=== PATIENT | male | born 1955 | race Caucasian/White ===

== ENCOUNTER 2016-11-22 14:12 | Emergency (ER) | payer OTHER ==
[~2016-11-22] VITALS: Ht 172.7 cm; Wt 49.0 kg
[~2016-11-22 14:12] MED LIST: BACT800T5 PO
[2016-11-22 14:18] VITALS: BP 98/68; PULSE 89; RESP 15; TEMP 98.7; O2SAT 96
--- NOTE | 2016-11-22 14:35 | PD ---
HPI Chief Complaint: Skin Problem Time Seen by Provider: 14:35 Travel History International Travel<30 days: No Contact w/Intl Traveler<30days: No Traveled to known affect area: No History of Present Illness HPI 61-year-old male presents to the emergency room for evaluation of an abscess to his right lower abdomen. He first noticed it 6 days ago and states it has gotten larger every day. Believes the spider could've potentially bitten him as it is under his belt line but he did not actually see a spider. Patient has applied drawing salve and tried to poke it with a needle without relief in symptoms. States it became especially painful today as with the pressure of his belt and pants. He denies fever, chills, nausea, and vomiting. Last tetanus was less than 5 years ago. PFSH Past Medical History Hx Anticoagulant Therapy: No Arthritis: Yes Bipolar Disorder: Yes Cancer: No Cardiovascular Problems: No Chemotherapy: No Cerebrovascular Accident: No Diabetes: No Endocrine: No Gastrointestinal Disorders: No GERD: Yes (PT DENIES) Genitourinary: No Hepatitis: No Hiatal Hernia: No Hypertension: No Immune Disorder: No Musculoskeletal: Yes Neurologic: Yes (NUMBNESS IN LEGS) Psychiatric: No Reproductive: No Respiratory: No Immunizations Current: Yes Thyroid Disease: No Tetanus Vaccination: < 5 Years Influenza Vaccination: No Past Surgical History Joint Replacement: No Neurologic Surgery: Yes (CERVICAL SPINE C4-5 ) Oral Surgery: Yes (TEETH EXTRACTIONS) Pacemaker: No Other Surgery: Yes Social History Alcohol Use: Yes (COUPLE TIMES A WEEK) Tobacco Use: Yes (1 1/2 PKS PER DAY) Substance Use: No Allergies-Medications (Allergen,Severity, Reaction): Coded Allergies: No Known Allergies (Verified , 11/22/16) Reported Meds & Prescriptions Reported Meds & Active Scripts Active Bactrim DS (Sulfamethoxazole-Trimethoprim) 800-160 Mg Tab 1 Tab PO BID Review of Systems Except as stated in HPI: all other systems reviewed are Neg Physical Exam Narrative GENERAL: Well-nourished, well-developed male in no acute distress. Afebrile. Ambulatory. SKIN: Focused skin assessment warm/dry. There is an indurated area in the right lower abdomen which measures about 4 cm in diameter. It is fluctuant but there is no pointing or drainage. There is a zone of inflammation around it but no lymphangitis. HEAD: Normocephalic. EYES: No scleral icterus. No injection or drainage. NECK: Supple, trachea midline. No JVD or lymphadenopathy. CARDIOVASCULAR: Regular rate and rhythm without murmurs, gallops, or rubs. RESPIRATORY: Breath sounds equal bilaterally. No accessory muscle use. PSYCHIATRIC: No delusional thought processes. No hallucinations. Data Data Last Documented VS Vital Signs Date Time Temp Pulse Resp B/P Pulse Ox O2 Delivery O2 Flow Rate FiO2 11/22/16 14:18 98.7 89 15 98/68 96 Orders Lidocaine 1% Inj (50 Ml) (Xylocaine 1% I (11/22/16 14:45) Wound Culture And Gram Stain (11/22/16 14:55) [facility] Medical Decision Making Medical Screen Exam Complete: Yes Emergency Medical Condition: Yes Medical Record Reviewed: Yes Differential Diagnosis Abscess, folliculitis, cellulitis Narrative Course 61-year-old male presents to the emergency room for evaluation of abscess to his right lower abdomen that started 6 days ago. Patient is afebrile and well- appearing in the emergency room. Vital signs stable. Physical exam reveals a 4 cm, extremely fluctuant abscess. No lymphangitis. Abscess was drained, see procedure note for details. Patient discharged with Bactrim and told to follow- up with a primary care physician or return for worsening symptoms. He understands and agrees to this plan. Procedures Procedure Narrative INCISION AND DRAINAGE OF ABSCESS: The area was prepped and was sterilely draped. A subcutaneous wheal of 1% lidocaine with a total number 2 mL was used to anesthetize the area properly. A number 11 scalpel was used to make a 1 cm incision across the area of the abscess. The abscess was drained, complex loculations were broken down, and irrigated with normal saline. Cultures were obtained. Sterile dressing applied. Diagnosis Primary Impression: Abscess Referrals: Primary Care Physician Patient Instructions: Abscess (ED), General Instructions Additional Instructions: Rest and drink plenty of fluids. Take Bactrim as directed, until gone. Follow up with a primary care physician. Return to emergency room for worsening symptoms, as discussed. Med/Other Pt SpecificInfo: Prescription(s) given Scripts Sulfamethoxazole-Trimethoprim (Bactrim DS)800-160 Mg Tab1 Tab PO BID #20 TAB Ref 0 Prov:French Dunne MD 11/22/16 Disposition: 01 DISCHARGE HOME Condition: Stable Ebonie Ventura Nov 22, 2016 14:35 Ebonie Ventura Nov 22, 2016 14:35
[2016-11-22] MEDS ORDERED: BACT800T5 PO (14:39)
[2016-11-22] MEDS ORDERED: LIDOCAINE HCL 1% 50 ML VIAL INFIL ONE (14:45)
== END 2016-11-22 15:07 | disposition home or self-care (01) ==
LOC: PHEFT 14:12
DX: L02.211 Cutaneous abscess of abdominal wall (principal); B95.61 Methicillin susceptible Staphylococcus aureus infection as the cause of diseases classified elsewhere; F17.200 Nicotine dependence, unspecified, uncomplicated; Z87.39 Personal history of other diseases of the musculoskeletal system and connective tissue; Z86.59 Personal history of other mental and behavioral disorders; Z86.69 Personal history of other diseases of the nervous system and sense organs
CPT/HCPCS: 10060; 86403; 87070; 87186

== ENCOUNTER 2017-03-06 09:06 | Emergency (ER) | payer OTHER ==
[~2017-03-06] VITALS: Ht 172.7 cm; Wt 48.0 kg
[2017-03-06 09:08] VITALS: BP 122/72; PULSE 85; RESP 17; TEMP 98; O2SAT 96
--- NOTE | 2017-03-06 09:39 | PD ---
HPI Chief Complaint: Musculoskeletal Complaint Time Seen by Provider: 09:22 Travel History International Travel<30 days: No Contact w/Intl Traveler<30days: No Traveled to known affect area: No History of Present Illness HPI 61yo M with PMH of bipolar disorder and arthritis presents to the ED with c/o left buttock pain that radiates down left leg for 3 days. States pain is intermittent and shoots down from left hip/left buttocks all the way down his left leg. He went to chiropractor yesterday and the pain went away but return today. Denies any fever, trauma, weakness, numbness, chest pain, sob, n/v, abdominal pain, back pain. Said he had problem with his sciatic nerve before. Took either tylenol and motrin for pain. PFSH Past Medical History Hx Anticoagulant Therapy: No Arthritis: Yes Bipolar Disorder: Yes Cancer: No Cardiovascular Problems: No Chemotherapy: No Cerebrovascular Accident: No Diabetes: No Endocrine: No Gastrointestinal Disorders: No GERD: Yes (PT DENIES) Genitourinary: No Hepatitis: No Hiatal Hernia: No Hypertension: No Immune Disorder: No Medical other: No Musculoskeletal: Yes Neurologic: Yes (NUMBNESS IN LEGS) Psychiatric: No Reproductive: No Respiratory: Yes (COPD) Immunizations Current: Yes Thyroid Disease: No Past Surgical History Joint Replacement: No Neurologic Surgery: Yes (CERVICAL SPINE C4-5 ) Oral Surgery: Yes (TEETH EXTRACTIONS) Pacemaker: No Other Surgery: Yes Social History Alcohol Use: Yes (COUPLE TIMES A WEEK) Tobacco Use: Yes (1 1/2 PKS PER DAY) Substance Use: No Allergies-Medications (Allergen,Severity, Reaction): Coded Allergies: No Known Allergies (Verified , 03/06/17) Reported Meds & Prescriptions Reported Meds & Active Scripts Active Tylenol (Acetaminophen) 325 Mg Tab 650 Mg PO Q6H PRN Review of Systems Except as stated in HPI: all other systems reviewed are Neg Physical Exam Narrative GENERAL: 61yo M not in distress. SKIN: Focused skin assessment warm/dry. HEAD: Atraumatic. Normocephalic. CARDIOVASCULAR: Regular rate and rhythm. No murmur appreciated. RESPIRATORY: No accessory muscle use. Clear to auscultation. Breath sounds equal bilaterally. GASTROINTESTINAL: Abdomen soft, non-tender, nondistended. No rebound tenderness or guarding. BACK: No midline ttp thoracic or lumbar spine. MUSCULOSKELETAL: +TTP left gluteus lucas. No erythema, edema, abscess, ecchymoses. FROM in left hip, left knee. Sensation intact. No saddle paresthesia. Distal pulses intact. NEUROLOGICAL: Awake and alert. No obvious cranial nerve deficits. Motor grossly within normal limits. Normal speech. PSYCHIATRIC: Appropriate mood and affect; insight and judgment normal. Data Data Last Documented VS Vital Signs Date Time Temp Pulse Resp B/P (MAP) Pulse Ox O2 Delivery O2 Flow Rate FiO2 03/06/17 09:08 98.0 85 17 122/72 (89) 96 Orders Orders Ketorolac Inj (Toradol Inj) (03/06/17 09:45) Hip, Uni(Ap&Lat) W Ap Pelvis (03/06/17 ) Diazepam (Valium) (03/06/17 11:15) MDM Medical Decision Making Medical Screen Exam Complete: Yes Emergency Medical Condition: Yes Differential Diagnosis Sciatica vs. pyriformis syndrome vs. musculoskeletal pain Narrative Course 61yo M with left buttocks pain radiating down left leg. Pt has no red flags, full range of motion in left hip. He is insisting on imaging even though I informed him that I do not think that his left hip is dislocated or broken. There is no trauma. Pt given toradol IM and valium 5mg PO with improvement of pain. Xray of left hip negative for fracture or malalignment. Vital signs stable. Diagnosis Primary Impression: Sciatic nerve pain Qualified Codes: M54.32 - Sciatica, left side Patient Instructions: General Instructions Departure Forms: Tests/Procedures Additional Instructions: Please follow up with your primary care physician in 2-3 days. Return to the ED if symptoms worsen. Med/Other Pt SpecificInfo: Prescription(s) given Scripts Acetaminophen (Tylenol) 325 Mg Tab 650 MG PO Q6H Y for PAIN SCALE 1 TO 4, #20 TAB 0 Refills Prov: Theresa Hinojosa 03/06/17 Disposition: 01 DISCHARGE HOME Condition: Stable HinojosaTheresa DO Mar 06, 2017 09:39
[2017-03-06] MEDS ORDERED: KETOROLAC TROMETHAMINE 60 MG/2 ML (IM) VIAL IM ONE (09:45)
--- NOTE | 2017-03-06 10:28 | RADRPT ---
EXAM DATE/TIME: 03/06/2017 09:58 [facility] COMPARISON: No previous studies available for comparison. INDICATIONS : Left hip pain. MEDICAL HISTORY : None. SURGICAL HISTORY : None. ENCOUNTER: Initial ACUITY: 3 days PAIN SCORE: 10/10 LOCATION: low back FINDINGS: Examination of the left hip was performed with AP Pelvis. The primary and secondary trabecular patte rn of the femoral neck is intact. The hip joint is of normal width without significant sclerosis or bony hypertrophy. The acetabulum is grossly intact. CONCLUSION: Negative exam with no evidence of fracture or malalignment. Micah Jones MD on March 06, 2017 at 10:26 Board Certified Radiologist. This report was verified electronically.
[2017-03-06] MEDS ORDERED: TYLE325T PO (10:36)
[2017-03-06] MEDS ORDERED: DIAZEPAM 5 MG TAB PO ONE (11:15)
== END 2017-03-06 11:24 | disposition home or self-care (01) ==
LOC: PHED 09:06
DX: M54.32 Sciatica, left side (principal); F17.200 Nicotine dependence, unspecified, uncomplicated; Z87.39 Personal history of other diseases of the musculoskeletal system and connective tissue; Z86.59 Personal history of other mental and behavioral disorders; Z87.19 Personal history of other diseases of the digestive system; Z86.69 Personal history of other diseases of the nervous system and sense organs; Z87.09 Personal history of other diseases of the respiratory system
CPT/HCPCS: 73502; 96372; 99284; J1885

== ENCOUNTER 2017-06-22 09:42 | Emergency (ER) | payer OTHER ==
[~2017-06-22] VITALS: Ht 172.7 cm; Wt 46.3 kg
[~2017-06-22 09:42] MED LIST changes: -BACT800T5 PO; +TYLE325T PO
[2017-06-22 09:50] VITALS: BP 113/72; PULSE 90; RESP 16; TEMP 97.8; O2SAT 98
[2017-06-22] MEDS ORDERED: BACT800T5 PO (10:26)
--- NOTE | 2017-06-22 10:26 | PD ---
HPI Chief Complaint: Skin Problem Time Seen by Provider: 09:58 Travel History International Travel<30 days: No Contact w/Intl Traveler<30days: No Traveled to known affect area: No History of Present Illness HPI This is a 61-year-old male here with abscess to his right lower abdomen 3 days. He has history of previous abscesses. He denies fever or chills. He reports the area has become increasingly more painful, swollen, red for the last 3 days. Pain is aggravated by palpation of the area. Slightly relieved with OTC Tylenol or ibuprofen. Symptom severity moderate. PFSH Past Medical History Hx Anticoagulant Therapy: No Arthritis: Yes Bipolar Disorder: Yes Cancer: No Cardiovascular Problems: No Chemotherapy: No COPD: Yes Cerebrovascular Accident: No Diabetes: No Endocrine: No Gastrointestinal Disorders: No GERD: Yes (PT DENIES) Genitourinary: No Hepatitis: No Hiatal Hernia: No Hypertension: No Immune Disorder: No Musculoskeletal: Yes Neurologic: Yes (NUMBNESS IN LEGS) Psychiatric: No Reproductive: No Respiratory: Yes (COPD) Immunizations Current: Yes Thyroid Disease: No Tetanus Vaccination: < 5 Years Influenza Vaccination: No Past Surgical History Joint Replacement: No Neurologic Surgery: Yes (CERVICAL SPINE C4-5 ) Oral Surgery: Yes (TEETH EXTRACTIONS) Pacemaker: No Other Surgery: Yes Social History Alcohol Use: Yes (occas. beer or wine) Tobacco Use: Yes (1 PK PER DAY) Substance Use: No Allergies-Medications (Allergen,Severity, Reaction): Coded Allergies: No Known Allergies (Verified Adverse Reaction, Unknown, 06/22/17) Reported Meds & Prescriptions Reported Meds & Active Scripts Active Bactrim DS (Sulfamethoxazole-Trimethoprim) 800-160 Mg Tab 1 Tab PO BID Tylenol (Acetaminophen) 325 Mg Tab 650 Mg PO Q6H PRN Review of Systems Except as stated in HPI: all other systems reviewed are Neg General / Constitutional: No: Fever Physical Exam Narrative GENERAL: Alert and well-appearing male. SKIN: Warm and dry. 1.5 centimeter fluctuant area to the right suprapubic region. No surrounding cellulitis. Scant amount of purulent drainage from the center. HEAD: Normocephalic. EYES: No scleral icterus. No injection or drainage. NECK: Supple, trachea midline. CARDIOVASCULAR: Regular rate and rhythm RESPIRATORY: Breath sounds equal bilaterally. No accessory muscle use. GASTROINTESTINAL: Abdomen soft, non-tender, nondistended. MUSCULOSKELETAL: No cyanosis, or edema. Data Data Last Documented VS Vital Signs Date Time Temp Pulse Resp B/P (MAP) Pulse Ox O2 Delivery O2 Flow Rate FiO2 06/22/17 09:57 16 06/22/17 09:50 97.8 90 113/72 (86) 98 Orders Orders Ed Discharge Order (06/22/17 10:26) MDM Medical Decision Making Medical Screen Exam Complete: Yes Emergency Medical Condition: Yes Differential Diagnosis Abscess, cellulitis, folliculitis Narrative Course 61 -year-old male here for incision and drainage of abscess. He is nontoxic- appearing. Incision and drainage performed. Patient tolerated procedure well. He'll be discharged home with Bactrim. Procedures Procedure Narrative INCISION AND DRAINAGE OF ABSCESS: The area was prepped and was sterilely draped. A subcutaneous wheal of 1 % Xylocaine was used to anesthetize the area properly. A number 11 scalpel was used to make a 0.5 -cm incision across the area of the abscess. The abscess was drained, complex loculations were broken down, and irrigated with normal saline. Cultures were obtained. Sterile dressing applied. Diagnosis Primary Impression: Abscess Referrals: Primary Care Physician Additional Instructions: Antibiotics as prescribed. Apply warm compresses to the area daily. Wash the area with soap and water daily. Return if he developed new or worsening symptoms. Scripts Sulfamethoxazole-Trimethoprim (Bactrim DS) 800-160 Mg Tab 1 TAB PO BID for Infection, #20 TAB 0 Refills Prov: Amanda Walls 06/22/17 Disposition: 01 DISCHARGE HOME Condition: Stable Amanda Walls Jun 22, 2017 10:26
== END 2017-06-22 10:30 | disposition home or self-care (01) ==
LOC: PHEFT 09:42
DX: L02.211 Cutaneous abscess of abdominal wall (principal); J44.9 Chronic obstructive pulmonary disease, unspecified; Z72.0 Tobacco use
CPT/HCPCS: 10060

== ENCOUNTER 2017-11-02 11:28 | Emergency (ER) | payer OTHER ==
[~2017-11-02] VITALS: Ht 172.7 cm; Wt 46.8 kg
[~2017-11-02 11:28] MED LIST changes: +BACT800T5 PO
[2017-11-02 11:31] VITALS: BP 122/61; PULSE 87; RESP 20; TEMP 98; O2SAT 95
[2017-11-02] MEDS ORDERED: CEPH-460 PO (11:54)
[2017-11-02] MEDS ORDERED: BACT800T5 PO (11:54)
--- NOTE | 2017-11-02 11:59 | PD ---
HPI Chief Complaint: Skin Problem Time Seen by Provider: 11:46 Travel History International Travel<30 days: No Contact w/Intl Traveler<30days: No Traveled to known affect area: No History of Present Illness HPI 62-year-old male presents emergency department for evaluation of a wound to the pelvic region that is been present since July or August this year. Says that he was evaluated and an incision and drainage performed but he does not believe that the entire abscess was removed. Says that he has had persistent scabbing since the drainage procedure. Says over the last couple days he has had increased irritation and yellow discharge along with increased pain so he decided to come in today for evaluation. He denies radiation of pain. He denies fevers or chills. He has no other concerns regarding this lesion. Says he is a history of abscesses previously that have healed normally. PFSH Past Medical History Hx Anticoagulant Therapy: No Arthritis: Yes Bipolar Disorder: Yes Cancer: No Cardiovascular Problems: No Chemotherapy: No COPD: Yes Cerebrovascular Accident: No Diabetes: No Diminished Hearing: No Endocrine: No Gastrointestinal Disorders: No GERD: Yes (PT DENIES) Genitourinary: No Hepatitis: No Hiatal Hernia: No Hypertension: No Immune Disorder: No Musculoskeletal: Yes Neurologic: Yes (NUMBNESS IN LEGS) Psychiatric: No Reproductive: No Respiratory: Yes (COPD) Immunizations Current: Yes Thyroid Disease: No Influenza Vaccination: No ?: Not Past Surgical History Joint Replacement: No Neurologic Surgery: Yes (CERVICAL SPINE C4-5 ) Oral Surgery: Yes (TEETH EXTRACTIONS) Pacemaker: No Other Surgery: Yes Social History Alcohol Use: Yes (occas. beer or wine) Tobacco Use: Yes (1 PK PER DAY) Substance Use: No Allergies-Medications (Allergen,Severity, Reaction): Coded Allergies: No Known Allergies (Verified Adverse Reaction, Unknown, 11/02/17) Reported Meds & Prescriptions Reported Meds & Active Scripts Active Keflex (Cephalexin) 500 Mg Cap 500 Mg PO Q8H 7 Days Bactrim DS (Sulfamethoxazole-Trimethoprim) 800-160 Mg Tab 1 Tab PO BID Review of Systems Except as stated in HPI: all other systems reviewed are Neg Physical Exam Narrative GENERAL: Well-nourished, well-developed patient, in NAD SKIN: Focused skin assessment warm/dry. No rashes or lesions. Mid pelvic-ulcerated lesions with white exudate, no malodorous discharge noted, no obvious fluctuance, unable to express fluid or discharge, mild tenderness palpation without extension of wound beyond the medial borders of the ulcer. The lymph angiopathic spread. No edema. HEAD: Normocephalic. Atraumatic. EYES: No scleral icterus. No injection or drainage. THROAT: No pharyngeal injection, exudates, or tonsillar hypertrophy. Airway is patent. NECK: Supple, trachea midline. No JVD or lymphadenopathy. No meningismus. MUSCULOSKELETAL: No cyanosis, or edema. BACK: Nontender without obvious deformity. No CVA tenderness. Data Data Last Documented VS Vital Signs Date Time Temp Pulse Resp B/P (MAP) Pulse Ox O2 Delivery O2 Flow Rate FiO2 11/02/17 11:31 98.0 87 20 122/61 (81) 95 Orders Orders Ed Discharge Order (11/02/17 11:59) MDM Medical Decision Making Medical Screen Exam Complete: Yes Emergency Medical Condition: Yes Differential Diagnosis Abdominal wall abscess, cellulitis, erysipelas Narrative Course 62-year-old male presents emergency department for evaluation of a wound to the pelvic region that is been present since July or August. Says that he was evaluated and an incision and drainage performed but he does not believe that the entire abscess was removed. Says that he has had persistent scabbing since then. Says over the last couple days he has had increased irritation and yellow discharge along with increased pain so he decided to come in today for evaluation. He denies radiation of pain. He denies fevers or chills. He has no other concerns regarding this lesion. Says he is a history of abscesses previously that have healed normally. Vital signs are stable. His exam findings consistent with ulceration of what once was an abscess. There is some mild induration just below the ulceration without fluctuance. No spontaneous expression of fluid although there is some white exudate in the ulceration. No edema or lymph angiopathic spread. Patient will be discharged with Bactrim and Keflex. Advised to return for wound check in 2-3 days if worsening or persistent symptoms. He states understanding will comply. Diagnosis Primary Impression: Abscess Referrals: [facility] Additional Instructions: Follow up with your primary care physician within 2-3 days. Keep area clean and dry for 24 hours. After 24 hours, you may bathe as normal but dry the area thoroughly. May leave the yellow gauze on for 2-3 days and less the gauze becomes contaminated or dirty. You may use [id number] triple antibiotic ointments for your injury daily. Take all medications as prescribed. If you developed increased redness, swelling, or pain return to the emergency department as this could be a sign of infection. As discussed, if the wound does not appear to be healing or is worsening return in 2-3 days for wound check. Scripts Cephalexin (Keflex) 500 Mg Cap 500 MG PO Q8H for Infection for 7 Days, #21 CAP 0 Refills Prov: Satish Dale MD 11/02/17 Sulfamethoxazole-Trimethoprim (Bactrim DS) 800-160 Mg Tab 1 TAB PO BID for Infection, #14 TAB 0 Refills Prov: Satish Dale MD 11/02/17 Disposition: 01 DISCHARGE HOME Condition: Stable Keisha Yu Nov 02, 2017 11:59
== END 2017-11-02 12:22 | disposition home or self-care (01) ==
LOC: PHEFT 11:28
DX: K65.1 Peritoneal abscess (principal); F31.9 Bipolar disorder, unspecified; J44.9 Chronic obstructive pulmonary disease, unspecified; F17.210 Nicotine dependence, cigarettes, uncomplicated
CPT/HCPCS: 99283